=== PATIENT | female | born 1965 | race Caucasian/White ===

== ENCOUNTER 2016-12-30 13:48 | Emergency (ER) | payer OTHER ==
[~2016-12-30] VITALS: Ht 152.4 cm; Wt 52.0 kg
[~2016-12-30 13:48] MED LIST: IBUP800T23 PO; METH500T3 PO
[2016-12-30 13:51] VITALS: BP 152/65; PULSE 97; RESP 18; TEMP 98.2; O2SAT 97
[2016-12-30] MEDS ORDERED: TRAZ50TA12 PO (14:30)
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
[2016-12-30] MEDS ORDERED: ROBA750T PO (15:38)
[2016-12-30] MEDS ORDERED: PRED20 PO (16:10)
--- NOTE | 2016-12-30 16:15 | RADRPT ---
EXAM DATE/TIME: 12/30/2016 15:25 [facility] COMPARISON: No previous studies available for comparison. INDICATIONS : Fall lastnight. Low back pain. RADIATION DOSE: 17.00 CTDIvol (mGy) MEDICAL HISTORY : Cardiovascular disease. Hernia, hiatal. SURGICAL HISTORY : Hysterectomy. ENCOUNTER: Initial ACUITY: 1 day PAIN SCALE: 10/10 LOCATION: low back TECHNIQUE: Volumetric scanning of the lumbar spine was performed. Multiplanar reconstructions in the sagittal, coronal and oblique axial planes were performed. Using automated exposure control and adjustment of the mA and/or kV according to patient size, radiation dose was kept as low as reasonably achievable t o obtain optimal diagnostic quality images. FINDINGS: VERTEBRAE: Normal vertebral body height. ALIGNMENT: No evidence of subluxation. T12-L1: The thecal sac has a normal diameter. No evidence of disc bulge or protrusion. The neural foramina are patent bilaterally. L1-L2: The thecal sac has a normal diameter. No evidence of disc bulge or protrusion. The neural foramina are patent bilaterally. L2-L3: The thecal sac has a normal diameter. No evidence of disc bulge or protrusion. The neural foramina are patent bilaterally. L3-L4: The thecal sac has a normal diameter. Broad-based posterior disc bulge. The neural foramina are paten t bilaterally. L4-L5: The thecal sac has a normal diameter. Broad-based posterior disc bulge. The neural foramina are paten t bilaterally. L5-S1: The thecal sac has a normal diameter. No evidence of disc bulge or protrusion. The neural foramina are patent bilaterally. CONCLUSION: 1. Broad-based posterior disc bulges at L3-4 through L5. No acute bony abnormalities. No significant stenosis. Devyn Flores MD on December 30, 2016 at 16:10 Board Certified Radiologist. This report was verified electronically.
== END 2016-12-30 16:31 | disposition home or self-care (01) ==
LOC: NEPA 13:48
DX: S30.0XXA Contusion of lower back and pelvis, initial encounter (principal); W10.8XXA Fall (on) (from) other stairs and steps, initial encounter
CPT/HCPCS: 72131